=== PATIENT | female | born 1990 | race African-American/Black ===

== ENCOUNTER 2017-12-10 15:33 | Emergency (ER) | payer SELFPAY ==
[~2017-12-10] VITALS: Ht 165.1 cm; Wt 87.0 kg
[2017-12-10 15:54] VITALS: BP 116/80
== END 2017-12-10 21:25 | disposition left against medical advice (07) ==
LOC: ER 16:41
DX: M54.5 Low back pain (principal)
CPT/HCPCS: 99281